=== PATIENT | female | born 1960 | race Caucasian/White ===

== ENCOUNTER → 2022-09-21 09:00 | Outpatient (BNVA) | payer OTHER, SELFPAY | PROVIDERS: PCP Internal Medicine; Visit Provider Internal Medicine Rheumatology | DX: Z13.89 Encounter for screening for other disorder (principal) ==

== ENCOUNTER 2022-09-21 10:13 | Outpatient (REF) | payer OTHER, SELFPAY ==
[2022-09-21 12:01] LABS: C Reactive Protein < 0.10 mg/dL (< or = 0.50); Rheumatoid Factor < 13.0 IU/mL (<15.0)
[2022-09-21 12:23] LABS: Erythrocyte Sedimentation Rate 2 MM/HR (0-20)
[2022-09-26 14:59] LABS: Cyclic Citrullinated Peptide <16 UNITS
== END 2022-09-21 10:14 | disposition home or self-care (01) ==
LOC: HO.10HDL 10:13
PROVIDERS: Visit Provider Internal Medicine Rheumatology
DX: M79.644 Pain in right finger(s) (principal); M17.11 Unilateral primary osteoarthritis, right knee; M19.041 Primary osteoarthritis, right hand
CPT/HCPCS: 36415; 85652; 86140; 86200; 86431